=== PATIENT | male | born 1955 | race Caucasian/White ===

== ENCOUNTER 2016-08-03 08:56 | Inpatient (IN) | payer MEDICAID ==
[~2016-08-03] VITALS: Ht 157.5 cm; Wt 73.0 kg
[2016-08-03 09:00] VITALS: BP 180/101
[2016-08-03] MEDS ORDERED: NACL 0.9% 500 ML IV SCH (09:05)
[2016-08-03] MEDS ORDERED: ALBUTEROL SULFATE/IPRATROPIU 3 ML SOL IH ONE (09:05)
[2016-08-03 09:38] LABS: BASOPHILS # (AUTO) 0.2 K/uL (0.00-0.22); BASOPHILS % (AUTO) 4.8 % (0.0-2.0); EOSINOPHILS # (AUTO) 0.3 K/uL (0-0.4); EOSINOPHILS % (AUTO) 8.1 % (0.0-4.0); HEMATOCRIT 39.7 % (36-52); HEMOGLOBIN 12.4 g/dL (12.0-18.0); LYMPHOCYTES # (AUTO) 0.7 K/uL (2.0-11.5); LYMPHOCYTES % (AUTO) 22.1 % (20.5-51.1); MEAN CORPUSCULAR HEMOGLOBIN 27 pg (27-31); MEAN CORPUSCULAR HGB CONC 31 g/dL (33-37); MEAN CORPUSCULAR VOLUME 86 fL (80-94); MONOCYTES # (AUTO) 0.6 K/uL (0.8-1.0); NEUTROPHILS # (AUTO) 1.5 K/uL (1.8-7.7); RED CELL DISTRIBUTION WIDTH 20.2 % (11.6-13.7)
[2016-08-03 09:42] LABS: ANION GAP 18.4 (8-16); CALCIUM 8.2 mg/dL (8.5-10.1); CARBON DIOXIDE 15.7 mmol/L (21-32); CREATININE 1.4 mg/dL (0.6-1.3); POTASSIUM 4.1 mmol/L (3.5-5.1)
[2016-08-03 09:47] LABS: ALBUMIN 2.8 g/dL (3.4-5.0); TOTAL BILIRUBIN 2.7 mg/dL (0.0-1.0); TOTAL PROTEIN, SERUM 8.3 g/dL (6.4-8.2)
[2016-08-03 09:53] LABS: INR 1.4 (0.8-1.2); PARTIAL THROMBOPLASTIN TIME 31.1 secs (22-35.6); PLATELET COUNT (AUTO) 42 K/uL (140-450); PROTHROMBIN TIME 12.9 secs (10.8-13.4); WHITE BLOOD COUNT (AUTO) 3.3 K/uL (4.8-10.8)
[2016-08-03 09:58] LABS: BLOOD GAS BASE EXCESS -7.4 mmol/L (-2.0-2.0); BLOOD GAS HCO3 15.9 mmol/L; BLOOD GAS PCO2 26.7 mmHg (20-50); BLOOD GAS PO2 66.5 mmHg
[2016-08-03 09:59] LABS: BLOOD GAS O2 SAT% 90.4 % (92.0-98.5)
[2016-08-03 10:06] LABS: LACTIC ACID 1.8 mmol/L (0.4-2.0)
[2016-08-03 10:43] LABS: APPEARANCE,URINE CLEAR (CLEAR); BILIRUBIN,URINE NEGATIVE (NEGATIVE); BLOOD, URINE TRACE-I (NEGATIVE); COLOR,URINE YELLOW (YELLOW); LEUKOCYTE ESTERASE ,URINE TRACE (NEGATIVE); NITRITE, URINE NEGATIVE (NEGATIVE); PROTEIN,URINE NEGATIVE (NEGATIVE); UGLUCOSE NEGATIVE (NEGATIVE)
[2016-08-03] MEDS ORDERED: HYDROmorphone 1 MG/ML AMP IVP ONE (10:50)
[2016-08-03 10:52] LABS: BACTERIA,URINE None Seen /HPF (None Seen); RBC,URINE 0-1 /HPF (0-5); SQUAMOUS EPITHELIAL CELL,UR None Seen /LPF (0-3 (FEW))
[2016-08-03] MEDS ORDERED: LACTULOSE 20 GM/30 ML UDC PO ONE (11:40)
[2016-08-03] MEDS ORDERED: ACETAMINOPHEN 325 MG TAB PO PRN (11:50)
[2016-08-03] MEDS ORDERED: ONDANSETRON 4 MG/2 ML VIAL IVP PRN (11:50)
[2016-08-03] MEDS: NACL 0.9% 1,000 ML IV SCH (12:06)
[2016-08-03 12:26] LABS: AMPHETAMINE, URINE NEG. ng/ml (NEG <=1000); BARBITURATE, URINE NEG. ng/ml (NEG <=200); BENZODIAZEPINE, URINE NEG. ng/mL (NEG <=200); CANNABINOID, URINE NEG. ng/mL (NEG <=50); COCAINE, URINE NEG. ng/mL (NEG <=300); OPIATE, URINE POS. ng/mL (NEG <=2000); PHENCYCLIDINE SCREEN,URINE NEG. ng/mL (NEG <=25)
[2016-08-03 12:34] LABS: CHOL/HDL RATIO 5.1 (1-4.5); FREE T4 (FREE THYROXINE) 1.13 ng/dL (0.76-1.46); MAGNESIUM 1.8 mg/dL (1.8-2.4); PHOSPHORUS 4.4 mg/dL (2.5-4.9); THYROID STIMULATING HORMONE 1.88 uIU/mL (0.34-3.76)
[2016-08-03] MEDS: HYDROcodone/APAP 7.5/325 MG 1 TAB PO PRN ×2 (12:49→22:31)
[2016-08-03] MEDS ORDERED: LACTOBACILLUS RHAMNOSUS GG 1 EACH CAP PO SCH (13:30)
[2016-08-03 16:00] VITALS: BP 139/103
[2016-08-03] MEDS ORDERED: LORazepam 2 MG/ML VIAL IVP PRN (17:45)
[2016-08-03] MEDS ORDERED: FOLIC ACID 1 MG TAB PO SCH (18:00)
[2016-08-03] MEDS ORDERED: LABETALOL 100 MG/20 ML VIAL IV SCH (18:00)
[2016-08-03] MEDS ORDERED: THIAMINE 200 MG/2 ML VIAL IM SCH (18:00)
[2016-08-03] MEDS ORDERED: LORazepam 1 MG TAB PO SCH (18:00)
[2016-08-03] MEDS: MORPHINE SULFATE 2 MG/ML SYR IVP PRN ×2 (18:11→20:12)
[2016-08-03 20:00] VITALS: BP 141/90
[2016-08-03] MEDS: ALBUTEROL SULFATE/IPRATROPIU 3 ML SOL IH SCH (20:12)
[2016-08-03] MEDS: LACTULOSE 20 GM/30 ML UDC PO SCH ×2 (20:13→20:25)
[2016-08-03] MEDS: DOCUSATE SODIUM 100 MG GELCAP PO SCH ×2 (20:13→20:26)
[2016-08-03] MEDS: LORazepam 1 MG TAB PO SCH (20:14)
[2016-08-03] MEDS: METOPROLOL 25 MG TAB PO SCH (20:14)
[2016-08-04] VITALS: BP 139/85
[2016-08-04] MEDS: MORPHINE SULFATE 2 MG/ML SYR IVP PRN ×4 (01:29→21:06)
[2016-08-04 04:00] VITALS: BP 127/60
[2016-08-04] MEDS: LORazepam 1 MG TAB PO SCH ×3 (05:31→21:06)
[2016-08-04 06:10] LABS: BASOPHILS # (AUTO) 0.1 K/uL (0.00-0.22); BASOPHILS % (AUTO) 3.5 % (0.0-2.0); EOSINOPHILS # (AUTO) 0.4 K/uL (0-0.4); EOSINOPHILS % (AUTO) 10.6 % (0.0-4.0); HEMATOCRIT 38.3 % (36-52); HEMOGLOBIN 11.9 g/dL (12.0-18.0); LYMPHOCYTES # (AUTO) 0.7 K/uL (2.0-11.5); LYMPHOCYTES % (AUTO) 17.8 % (20.5-51.1); MEAN CORPUSCULAR HEMOGLOBIN 27 pg (27-31); MEAN CORPUSCULAR HGB CONC 31 g/dL (33-37); MEAN CORPUSCULAR VOLUME 88 fL (80-94); MONOCYTES # (AUTO) 0.7 K/uL (0.8-1.0); MONOCYTES % (AUTO) 17.6 % (1.7-9.3); NEUTROPHILS # (AUTO) 2.3 K/uL (1.8-7.7); NEUTROPHILS % (AUTO) 50.5 % (42.2-75.2); RED BLOOD CELL COUNT(AUTO) 4.35 MIL/uL (4.20-6.10); RED CELL DISTRIBUTION WIDTH 19.8 % (11.6-13.7); WHITE BLOOD COUNT (AUTO) 4.2 K/uL (4.8-10.8)
[2016-08-04 06:37] LABS: ANION GAP 15.6 (8-16); CALCIUM 8.5 mg/dL (8.5-10.1); CARBON DIOXIDE 17.5 mmol/L (21-32); CREATININE 1.4 mg/dL (0.6-1.3); POTASSIUM 4.1 mmol/L (3.5-5.1)
[2016-08-04 06:38] LABS: MAGNESIUM 1.6 mg/dL (1.8-2.4); PHOSPHORUS 4.2 mg/dL (2.5-4.9)
[2016-08-04] MEDS: ALBUTEROL SULFATE/IPRATROPIU 3 ML SOL IH SCH ×3 (07:11→19:04)
[2016-08-04 07:36] LABS: PLATELET COUNT (AUTO) 27 K/uL (140-450)
[2016-08-04 08:00] VITALS: BP 141/98
[2016-08-04] MEDS: FOLIC ACID 1 MG TAB PO SCH (08:00)
[2016-08-04] MEDS: METOPROLOL 25 MG TAB PO SCH ×2 (08:01→21:06)
[2016-08-04] MEDS: LACTOBACILLUS RHAMNOSUS GG 1 EACH CAP PO SCH (08:01)
[2016-08-04] MEDS: THIAMINE 200 MG/2 ML VIAL IM SCH (08:02)
[2016-08-04] MEDS: PANTOPRAZOLE 40 MG INJ VIAL IVP SCH (08:02)
[2016-08-04] MEDS: NACL 0.9% 1,000 ML IV SCH (08:05)
[2016-08-04] MEDS: DOCUSATE SODIUM 100 MG GELCAP PO SCH ×2 (08:11→21:00)
[2016-08-04] MEDS: LACTULOSE 20 GM/30 ML UDC PO SCH ×4 (08:11→21:07)
[2016-08-04] MEDS ORDERED: MAGNESIUM OXIDE 400 MG TAB PO SCH (09:00)
[2016-08-04] MEDS: HYDROmorphone 1 MG/ML AMP IVP PRN ×3 (11:35→18:43)
[2016-08-04 12:00] VITALS: BP 143/105
[2016-08-04 16:00] VITALS: BP 151/92
[2016-08-04] MEDS ORDERED: ZOLPIDEM 10 MG TAB PO PRN (17:25)
[2016-08-04] MEDS: ALBUTEROL SULFATE/IPRATROPIU 3 ML SOL IH PRN (17:46)
[2016-08-04] MEDS: LISINOPRIL 10 MG TAB PO SCH (18:42)
[2016-08-04 20:00] VITALS: BP 127/94
[2016-08-05] VITALS: BP 131/84
[2016-08-05] MEDS: NACL 0.9% 1,000 ML IV SCH ×2 (03:59→18:28)
[2016-08-05] MEDS: LORazepam 1 MG TAB PO SCH ×3 (04:38→20:32)
[2016-08-05 04:51] VITALS: BP 125/76
[2016-08-05 06:34] LABS: HEMATOCRIT 36.6 % (36-52); HEMOGLOBIN 11.8 g/dL (12.0-18.0); MEAN CORPUSCULAR HEMOGLOBIN 28 pg (27-31); MEAN CORPUSCULAR HGB CONC 32 g/dL (33-37); MEAN CORPUSCULAR VOLUME 86 fL (80-94); PLATELET COUNT (AUTO) 20 K/uL (140-450); RED BLOOD CELL COUNT(AUTO) 4.24 MIL/uL (4.20-6.10); RED CELL DISTRIBUTION WIDTH 19.4 % (11.6-13.7); WHITE BLOOD COUNT (AUTO) 4.9 K/uL (4.8-10.8)
[2016-08-05] MEDS: HYDROcodone/APAP 7.5/325 MG 1 TAB PO PRN ×3 (06:37→17:43)
[2016-08-05 06:58] LABS: BAND % (MANUAL) 0 % (0-8); BASOPHILS % (MANUAL) 0 % (0-2); EOSINOPHILS % (MANUAL) 13 % (0-4); LYMPHOCYTES % (MANUAL) 12 % (20-46); MONOCYTES % (MANUAL) 17 % (5-12); NEUTROPHILS % (MANUAL) 58 (43-65); PLATELET ESTIMATE DECREASED
[2016-08-05] MEDS: ALBUTEROL SULFATE/IPRATROPIU 3 ML SOL IH SCH ×3 (07:19→19:19)
[2016-08-05 08:00] VITALS: BP 142/92
[2016-08-05] MEDS: LISINOPRIL 10 MG TAB PO SCH (08:11)
[2016-08-05] MEDS: LACTULOSE 20 GM/30 ML UDC PO SCH ×3 (08:11→20:33)
[2016-08-05] MEDS: METOPROLOL 25 MG TAB PO SCH ×2 (08:12→20:32)
[2016-08-05] MEDS: THIAMINE 200 MG/2 ML VIAL IM SCH (08:13)
[2016-08-05] MEDS: FOLIC ACID 1 MG TAB PO SCH (08:13)
[2016-08-05] MEDS: LACTOBACILLUS RHAMNOSUS GG 1 EACH CAP PO SCH (08:13)
[2016-08-05] MEDS: DOCUSATE SODIUM 100 MG GELCAP PO SCH ×2 (08:17→20:32)
[2016-08-05] MEDS: HYDROmorphone 1 MG/ML AMP IVP PRN ×2 (08:18→23:47)
[2016-08-05] MEDS: PANTOPRAZOLE 40 MG INJ VIAL IVP SCH (08:18)
[2016-08-05 08:24] LABS: ANION GAP 17.9 (8-16); CALCIUM 7.9 mg/dL (8.5-10.1); CREATININE 1.6 mg/dL (0.6-1.3); POTASSIUM 3.9 mmol/L (3.5-5.1)
[2016-08-05 09:17] LABS: MAGNESIUM 1.7 mg/dL (1.8-2.4); PHOSPHORUS 4.5 mg/dL (2.5-4.9)
[2016-08-05 12:00] VITALS: BP 155/73
[2016-08-05] MEDS ORDERED: MAGNESIUM OXIDE 400 MG TAB PO SCH (12:00)
[2016-08-05] MEDS ORDERED: NEOMYCIN 500 MG TAB PO SCH (12:06)
[2016-08-05 16:00] VITALS: BP 139/91
[2016-08-05 17:13] LABS: BASOPHILS # (AUTO) 0.2 K/uL (0.00-0.22); EOSINOPHILS # (AUTO) 0.5 K/uL (0-0.4); HEMATOCRIT 39.4 % (36-52); HEMOGLOBIN 12.2 g/dL (12.0-18.0); LYMPHOCYTES # (AUTO) 0.9 K/uL (2.0-11.5); MEAN CORPUSCULAR HEMOGLOBIN 27 pg (27-31); MEAN CORPUSCULAR HGB CONC 31 g/dL (33-37); MEAN CORPUSCULAR VOLUME 87 fL (80-94); MONOCYTES # (AUTO) 0.5 K/uL (0.8-1.0); MONOCYTES % (AUTO) 11.1 % (1.7-9.3); NEUTROPHILS # (AUTO) 2.6 K/uL (1.8-7.7); PLATELET COUNT (AUTO) 31 K/uL (140-450); RED BLOOD CELL COUNT(AUTO) 4.54 MIL/uL (4.20-6.10); RED CELL DISTRIBUTION WIDTH 19.7 % (11.6-13.7); WHITE BLOOD COUNT (AUTO) 4.7 K/uL (4.8-10.8)
[2016-08-05 17:33] LABS: INR 1.4 (0.8-1.2); PARTIAL THROMBOPLASTIN TIME 33.4 secs (22-35.6); PROTHROMBIN TIME 13.7 secs (10.8-13.4)
[2016-08-05 17:41] LABS: ALBUMIN 2.7 g/dL (3.4-5.0); ANION GAP 18.3 (8-16); CALCIUM 8.1 mg/dL (8.5-10.1); CARBON DIOXIDE 15.6 mmol/L (21-32); CREATININE 1.6 mg/dL (0.6-1.3); POTASSIUM 3.9 mmol/L (3.5-5.1); TOTAL PROTEIN, SERUM 7.9 g/dL (6.4-8.2)
[2016-08-05] MEDS: NEOMYCIN 500 MG TAB PO SCH ×2 (17:43→23:32)
[2016-08-05 20:00] VITALS: BP 127/58
[2016-08-05] MEDS: MORPHINE SULFATE 2 MG/ML SYR IVP PRN (20:33)
[2016-08-06] VITALS: BP 120/77
[2016-08-06] MEDS: ACETAMINOPHEN 325 MG TAB PO SCH ×3 (01:53→04:00)
[2016-08-06] MEDS: FUROSEMIDE 20 MG TAB PO SCH ×2 (02:46)
[2016-08-06 04:00] VITALS: BP 131/92
[2016-08-06] MEDS: LORazepam 1 MG TAB PO SCH (04:40)
[2016-08-06] MEDS: HYDROmorphone 1 MG/ML AMP IVP PRN (04:50)
[2016-08-06] MEDS ORDERED: FUROSEMIDE 40 MG/4 ML VIAL IVP SCH ×2 (05:00→10:00)
[2016-08-06 05:59] LABS: BASOPHILS # (AUTO) 0.1 K/uL (0.00-0.22); BASOPHILS % (AUTO) 1.1 % (0.0-2.0); EOSINOPHILS # (AUTO) 0.6 K/uL (0-0.4); EOSINOPHILS % (AUTO) 9.6 % (0.0-4.0); HEMATOCRIT 38.1 % (36-52); HEMOGLOBIN 11.8 g/dL (12.0-18.0); LYMPHOCYTES % (AUTO) 15.9 % (20.5-51.1); MEAN CORPUSCULAR HEMOGLOBIN 27 pg (27-31); MEAN CORPUSCULAR HGB CONC 31 g/dL (33-37); MEAN CORPUSCULAR VOLUME 88 fL (80-94); MONOCYTES # (AUTO) 1.1 K/uL (0.8-1.0); MONOCYTES % (AUTO) 17.7 % (1.7-9.3); NEUTROPHILS # (AUTO) 3.6 K/uL (1.8-7.7); NEUTROPHILS % (AUTO) 55.7 % (42.2-75.2); PLATELET COUNT (AUTO) 91 K/uL (140-450); RED BLOOD CELL COUNT(AUTO) 4.32 MIL/uL (4.20-6.10); RED CELL DISTRIBUTION WIDTH 20.2 % (11.6-13.7); WHITE BLOOD COUNT (AUTO) 6.4 K/uL (4.8-10.8)
[2016-08-06] MEDS: NACL 0.9% 1,000 ML IV SCH (06:01)
[2016-08-06] MEDS: NEOMYCIN 500 MG TAB PO SCH (06:02)
[2016-08-06 06:28] LABS: MAGNESIUM 1.7 mg/dL (1.8-2.4); PHOSPHORUS 3.8 mg/dL (2.5-4.9)
[2016-08-06 06:29] LABS: CALCIUM 8.2 mg/dL (8.5-10.1); CARBON DIOXIDE 17.9 mmol/L (21-32); CREATININE 1.7 mg/dL (0.6-1.3); POTASSIUM 3.9 mmol/L (3.5-5.1)
[2016-08-06] MEDS: ALBUTEROL SULFATE/IPRATROPIU 3 ML SOL IH SCH (06:31)
[2016-08-06] MEDS ORDERED: MAG SULF 2000 MG/WATER PREMIX 50 ML IV SCH (07:30)
[2016-08-06 08:00] VITALS: BP 137/102
[2016-08-06] MEDS ORDERED: MAGNESIUM OXIDE 400 MG TAB PO SCH (08:00)
[2016-08-06] MEDS: PANTOPRAZOLE 40 MG INJ VIAL IVP SCH (08:49)
[2016-08-06] MEDS: FOLIC ACID 1 MG TAB PO SCH (08:49)
[2016-08-06] MEDS: LISINOPRIL 10 MG TAB PO SCH (08:49)
[2016-08-06] MEDS: LACTOBACILLUS RHAMNOSUS GG 1 EACH CAP PO SCH (08:50)
[2016-08-06] MEDS: DOCUSATE SODIUM 100 MG GELCAP PO SCH (08:50)
[2016-08-06] MEDS: METOPROLOL 25 MG TAB PO SCH (08:50)
[2016-08-06] MEDS: LACTULOSE 20 GM/30 ML UDC PO SCH (08:51)
[2016-08-06] MEDS: THIAMINE 200 MG/2 ML VIAL IM SCH (08:51)
[2016-08-06] MEDS: MORPHINE SULFATE 2 MG/ML SYR IVP PRN (08:52)
[2016-08-06] MEDS: ALBUTEROL SULFATE/IPRATROPIU 3 ML SOL IH PRN (09:13)
[2016-08-06] MEDS ORDERED: LACTULOSE 20 GM/30 ML UDC PO SCH (13:00)
[2016-08-06] MEDS ORDERED: SPIRONOLACTONE 50 MG TAB PO SCH (21:00)
[2016-08-07] MEDS ORDERED: FUROSEMIDE 40 MG/4 ML VIAL IVP SCH (09:00)
== END 2016-08-06 10:30 | disposition left against medical advice (07) | DRG 720 ==
LOC: MED 08:56 → UNDOADMIN 12:05 → MTU 12:05
PROVIDERS: ADMIT Family Medicine; ATTEND Family Medicine
PROC: 0HQ1XZZ Repair Face Skin, External Approach (ICD-10-PCS; 2016-08-03)
PROC: 30233R1 Transfusion of Nonautologous Platelets into Peripheral Vein, Percutaneous Approach (ICD-10-PCS; principal; 2016-08-06)
DX: A41.9 Sepsis, unspecified organism (principal); N17.0 Acute kidney failure with tubular necrosis; K72.00 Acute and subacute hepatic failure without coma; E43 Unspecified severe protein-calorie malnutrition; I67.4 Hypertensive encephalopathy; K65.4 Sclerosing mesenteritis; E87.1 Hypo-osmolality and hyponatremia; K74.60 Unspecified cirrhosis of liver; N12 Tubulo-interstitial nephritis, not specified as acute or chronic; E80.6 Other disorders of bilirubin metabolism; B19.20 Unspecified viral hepatitis C without hepatic coma; K43.9 Ventral hernia without obstruction or gangrene; N39.0 Urinary tract infection, site not specified; K42.9 Umbilical hernia without obstruction or gangrene; E83.42 Hypomagnesemia; D64.9 Anemia, unspecified; I13.10 Hypertensive heart and chronic kidney disease without heart failure, with stage 1 through stage 4 chronic kidney disease, or unspecified chronic kidney disease; N18.9 Chronic kidney disease, unspecified; Z53.21 Procedure and treatment not carried out due to patient leaving prior to being seen by health care provider; S01.21XA Laceration without foreign body of nose, initial encounter; K40.90 Unilateral inguinal hernia, without obstruction or gangrene, not specified as recurrent; K21.9 Gastro-esophageal reflux disease without esophagitis; Z72.89 Other problems related to lifestyle; Z56.0 Unemployment, unspecified; Z68.29 Body mass index [BMI] 29.0-29.9, adult
CPT/HCPCS: 36415; 71010; 80048; 80053; 80305; 81001; 82140; 82150; 82550; 82553; 83036; 83605; 83690; 83735; 83874; 83880; 84100; 84439; 84443; 84484; 85025; 85610; 85730; 86886; 86900; 86901; 87040; 87081; 87086; 93005; 94640; 96361; 96374; 99285; C9113; G0482; J0696; J1170; J1940; J2060; J2270; J3411; J3475; J3490; J7030; J7060; J7620; P9035; Q0092; Q0163; Q9967